=== PATIENT | female | born 1955 | race Caucasian/White ===

== ENCOUNTER → 2017-10-04 13:17 | Outpatient (CLI) | payer OTHER, SELFPAY ==
--- NOTE | 2017-10-04 13:25 | BI_ITS ---
MAMMOGRAPHY - BILATERAL SCREENING REASON FOR EXAM: Female, 62 years old. Routine annual screening examination. PERTINENT HISTORY: Grandmother with breast cancer. TECHNIQUE: Digital bilateral breast laura (3D mammographic acquisition) in the CC and MLO projections. 2-D mediolateral oblique (MLO) and craniocaudad (CC) views of both breasts were obtained. CAD: Full Field Digital Mammography with Computer Added Detection was performed. COMPARISON: Comparison is made with prior examination dated September 11, 2016 and June 11, 2012. FINDINGS: Breast Composition: There are scattered areas of fibroglandular density. There are no dominant masses or suspicious calcifications. No other significant abnormalities are identified. There has been no significant change since the prior study. BI/SCREENING MAMM (CAD), BILAT IMPRESSION: Stable bilateral screening mammogram. Yearly follow-up mammogram recommended. (A) ASSESSMENT CATEGORY: BIRADS Category 1: Negative. A letter regarding these results will be sent to the patient by the facility within 30 days. Approximately 10% of breast cancers are not detected by mammography. A normal mammogram should not delay biopsy of a clinically suspicious abnormality. [id number] Electronically Signed: Germán Lima MD at 12:51 EDT Tel [phone], Service support ,
== END ==
PROVIDERS: Family Provider Family Medicine; PCP Family Medicine; Visit Provider Nurse Practitioner Women's Health
DX: Z12.31 Encounter for screening mammogram for malignant neoplasm of breast (principal)
CPT/HCPCS: 77063; 77067

== ENCOUNTER → 2017-10-08 09:57 | Outpatient (CLI) | payer OTHER, SELFPAY ==
[2017-10-08 12:48] LABS: Anion Gap 7 (5-15); BUN 15 mg/dL (7-18); Calcium,Total 9.1 mg/dL (8.5-10.1); Chloride 104 mmol/L (98-107); Cholesterol 165 mg/dL (200); Creatinine, Serum 0.83 mg/dL (0.55-1.02); EST Glomerular Filtration Rate 74 mL/min (>60); Est Glom Filt Rate - Afr Amer 90 mL/min (>60); Glucose 99 mg/dL (74-106); High Density Lipoprotein 71 mg/dL; Potassium 3.5 mmol/L (3.5-5.1); Sodium Level 143 mmol/L (136-145); Thyroid Stim Hormone (TSH) 3.13 uIU/mL (0.358-3.74); Triglycerides 112 mg/dL; Very Low Density Lipoprotein 22 mg/dL (5-40)
== END ==
PROVIDERS: Family Provider Family Medicine; PCP Family Medicine; Visit Provider Nurse Practitioner Adult Health
DX: Z13.220 Encounter for screening for lipoid disorders (principal); Z13.1 Encounter for screening for diabetes mellitus; Z13.29 Encounter for screening for other suspected endocrine disorder
CPT/HCPCS: 36415; 80048; 80061; 84443

== ENCOUNTER → 2017-11-09 09:58 | Outpatient (CLI) | payer OTHER, SELFPAY ==
--- NOTE | 2017-11-09 10:11 | MRI_ITS ---
STUDY: MRI LUMBAR SPINE WITHOUT CONTRAST REASON FOR EXAM: Female, 62 years old. Back pain with numbness in legs and feet bilaterally. TECHNIQUE: Standardized fat and water weighted pulse sequences were obtained in the sagittal and axial planes. COMPARISON: 05/12/2005. FINDINGS: T10-T11: (Sagittal only). Schmorl's node at the T10 inferior endplate. Normal T11 superior endplate. Moderate disc space height narrowing with minimal loss of disc hydration. Normal disc morphology. Normal central canal and bilateral intervertebral neural foramina. T11-T12: (Sagittal only). Normal endplates. Normal disc height, hydration and morphology. Normal central canal and bilateral intervertebral neural foramina. T12-L1: (Sagittal only). Normal endplates. Normal disc height, hydration and morphology. Normal central canal and bilateral intervertebral neural foramina. Normal lumbar lordosis. There is no substantial scoliosis. Normal conus medullaris that terminates at the lower T12 vertebral body level. L1-2: Minimal focal fatty infiltration in the anterior superior corner of L2 vertebral body. Normal endplates. New mild decreased disc height. Mild loss of disc hydration. Small posterior bulging disc. Normal central canal and bilateral lateral recesses. Mild degenerative facet arthropathy. Normal bilateral intervertebral neural foramina. L2-3: New prominent Schmorl's node in the central L2 inferior endplate with moderate amount of reactive edema. New tiny Schmorl's node in the L3 superior endplate. Moderate disc space height narrowing. Small posterior bulging disc. Moderate central canal stenosis secondary to developmentally short pedicles and dorsal epidural lipomatosis. The AP canal diameter is 6.7 mm. Mild asymmetric degenerative facet arthropathy. Normal bilateral intervertebral neural foramina. L3-4: Normal endplates. Mild disc space height narrowing with moderate loss of disc hydration. Moderate central canal stenosis secondary to developmentally short pedicles and dorsal epidural lipomatosis. The AP canal diameter is 7.6 mm. Normal bilateral lateral recesses. Mild degenerative facet arthropathy. Normal bilateral intervertebral neural foramina. L4-5: New Schmorl's node in the posterior aspect of the L4 inferior endplate with reactive edema. Normal L5 superior endplate. Increased narrowing of the disc space height. New degenerative anterolisthesis of L4 on L5. Severe central canal stenosis, worse since the prior study. The AP canal diameter is 2.5 mm. Moderately pronounced bilateral degenerative facet arthropathy. Moderate stenosis of the bilateral intervertebral neural foramina. L5-S1: Normal endplates. Minimal disc space height narrowing. Normal disc hydration and morphology. Normal central canal and bilateral lateral recesses. Moderate degenerative facet arthropathy. Normal bilateral intervertebral neural foramina. Normal visualized sacral ala. Normal visualized paraspinous soft tissue structures. MRI/Spine Lumbar (Routine) IMPRESSION: 1. Severe central canal stenosis at L4-L5 disc level, worse since 05/12/2005. This is due to new increased disc height narrowing and new degenerative anterolisthesis of L4 on L5. 2. Moderate central canal stenosis at L3-L4 disc level secondary to developmentally short pedicles and dorsal epidural lipomatosis. The AP canal diameter is 7.6 mm. 3. Moderate central canal stenosis at L2-L3 disc level with small posterior bulging disc. The AP canal diameter is 6.7 mm. 4. Moderate amount of reactive edema underneath a new large Schmorl's node in the central aspect of the L2 inferior endplate and increase L2-L3 disc space height narrowing. There is also a new but small Schmorl's node in the L3 superior endplate. 5. No MRI evidence of lumbar extruded disc fragment. Electronically Signed: Stoney Tejeda MD at 11:53 EDT , Service support ,
== END ==
PROVIDERS: Family Provider Family Medicine; PCP Family Medicine; Visit Provider Family Medicine
DX: M54.16 Radiculopathy, lumbar region (principal)
CPT/HCPCS: 72148

== ENCOUNTER → 2018-02-12 13:42 | Outpatient (CLI) | payer OTHER, SELFPAY ==
--- NOTE | 2018-02-12 13:44 | RAD_ITS ---
STUDY: X-RAY - LUMBAR SPINE REASON FOR EXAM: Female, 62 years old. Back pain, stenosis TECHNIQUE: 4 view(s) of the lumbar spine were obtained. COMPARISON: None FINDINGS: Lumbar levoscoliosis, Randhawa angle approximately 9 degrees. Normal lumbar lordosis. Slight retrolisthesis of L3 relative to L4 Mild grade 1 anterior listhesis L4-L5 associated with moderate facet hypertrophy. Minimal disc narrowing and endplate degenerative changes are present at L1-L2, L2-L3, L3-L4, L4-L5. There is evidence of facet hypertrophy at each level between L2 and L5. Extension view, slight reduction in the degree of anterolisthesis of L4-L5. Very slight exaggeration of the retrolisthesis of L3-L4. Flexion view, stable L4-L5 anterior listhesis and no significant change in the degree of L3-L4 retrolisthesis. RAD/L/S Spine Min 4 Views IMPRESSION: Spondylolisthesis and mild disc degenerative features with mild to moderate multilevel facet arthropathy/hypertrophy as described above. Electronically Signed: Evgeny Giron, at 14:23 EDT Tel , Service support ,
== END ==
PROVIDERS: Family Provider Family Medicine; PCP Family Medicine; Referring Provider Orthopaedic Surgery; Visit Provider Orthopaedic Surgery
DX: M54.5 Low back pain (principal)
CPT/HCPCS: 72110

== ENCOUNTER → 2018-06-04 08:51 | Outpatient (CLI) | payer OTHER, SELFPAY ==
--- NOTE | 2018-06-04 08:53 | RAD_ITS ---
STUDY: X-RAY - LUMBAR SPINE REASON FOR EXAM: Female, 63 years old. One month postop TECHNIQUE: 2 view(s) of the lumbar spine were obtained. COMPARISON: February 12, 2018 FINDINGS: There is normal alignment and curvature of the lumbosacral spine with interval interbody fusion at L4-5. The procedure is secured by plates and transpedicular screws through L4 and L5. The hardware is in good position.. RAD/Lumbar Spine 2 or 3 Views IMPRESSION: Interbody fusion at L4-5. Electronically Signed: Rickey Medina MD at 2:37 EST Tel , Service support ,
== END ==
PROVIDERS: Family Provider Family Medicine; PCP Family Medicine; Referring Provider Orthopaedic Surgery; Visit Provider Orthopaedic Surgery
DX: M54.9 Dorsalgia, unspecified (principal)
CPT/HCPCS: 72100

== ENCOUNTER → 2018-07-16 08:57 | Outpatient (CLI) | payer OTHER, SELFPAY ==
--- NOTE | 2018-07-16 08:58 | RAD_ITS ---
STUDY: X-RAY - LUMBAR SPINE REASON FOR EXAM: Female, 63 years old. Postop. TECHNIQUE: 4 view(s) of the lumbar spine were obtained. COMPARISON: June 04, 2018. FINDINGS: There is mild exaggeration of lumbar lordosis. There is no substantial scoliosis. There is a normal alignment of the vertebrae. There is no alteration of alignment with flexion or extension. Again seen is posterior fusion of L4-5. The hardware is intact. Normal disc space heights. There is no evidence of acute fracture or loss of vertebral axial height. The soft tissue structures are unremarkable. RAD/L/S Spine Min 4 Views IMPRESSION: Surgical fusion of L4-5 unchanged from prior exam. There are no new findings. There is no vertebral instability. Electronically Signed: Robert Samson DO at 11:46 EDT Tel [phone], Service support ,
== END ==
PROVIDERS: Family Provider Family Medicine; PCP Family Medicine; Referring Provider Orthopaedic Surgery; Visit Provider Orthopaedic Surgery
DX: Z98.1 Arthrodesis status (principal)
CPT/HCPCS: 72110

== ENCOUNTER 2018-09-17 13:30 | Outpatient (RCR) | payer OTHER, SELFPAY ==
--- NOTE | 2018-09-17 13:51 | HP.PTDCSUM ---
HP - PT D/C Summary It has been my pleasure to treat URBAN OLIVER under orders from Layla Giron MD, for the diagnosis of S/P L4-L5 intrumented fusion on 04-26-18 for a total of 15 visit(s). Discharge Date: 09/17/18 Please see the following information for a summary of their discharge status. - Subjective Subjective: She had some soreness yesterday and she was working outside in the yard. Pt feels that she is good and does not need PT any longer. Pt RTD in September. The only time she has trouble is when she has been outside a lot and working a lot and then she knows taht she needs to rest. Pt is planning on doing pool exercises and has some bands for her core. - Pain Back pain Pain Intensity (Out of 10): 0 - Overall Improvement % Improvement: 90 - Objective Objective/Function: Gait: LE MMT: B hip flex 4+/5, B knee ext 4+/5, B knee flex 4+/5, B hip abd 4/5. Pt is able to walk on heels and toes. Curb step: Pt is able to go up and down the curb step without any issue. Stairs: up and down stairs recip with 1 handrails. - Goals Goal 1:: I HEP Goal Progress: Goal Met Goal 2:: Increase trunk AROM to 100% normal ROM Goal Progress: Goal Met Goal 3:: Be able to go up and down a curb step with SBA without LOB 5/5 times Goal Progress: Goal Met Goal 4:: Be able to to molded goods spot picker and object from the floor without having any pain. Goal Progress: Goal Met Goal 5:: Pt to be able to molded goods spot picker weeds from the ground without any pain and be able to have the LE strength to get back up to the standing position. Goal Progress: Goal Met - Plan Plan: DC PT to HEP. - D/C Information Discharge Comments: DC PT to HEP If there are questions or concerns regarding this patient's physical therapy, please feel free to call me at [phone]. Thank you for the referral of this patient. Sincerely, Kyung Coleman, MPT
== END 2018-09-17 19:00 | disposition home or self-care (01) ==
LOC: PT 13:30
PROVIDERS: Family Provider Family Medicine; PCP Family Medicine; Referring Provider Orthopaedic Surgery; Visit Provider Orthopaedic Surgery
DX: Z98.1 Arthrodesis status (principal)
CPT/HCPCS: 97113; 97161; 97530

== ENCOUNTER → 2018-10-01 08:15 | Outpatient (CLI) | payer OTHER, SELFPAY ==
--- NOTE | 2018-10-01 08:16 | RAD_ITS ---
HISTORY: BACK PAIN TECHNIQUE: Lumbar spine 2 views Number of images including paperwork: 2 COMPARISON: 07/16/2018 FINDINGS: VERTEBRAE: No acute fracture. VERTEBRAL ALIGNMENT: No traumatic subluxation. DISKS AND JOINTS: Spinal fusion is noted at L4-5 with posterior rods, pedicle screws and disc spacer. Mild discogenic degenerative changes otherwise. SOFT TISSUES: Unremarkable paraspinous soft tissues. RAD/Lumbar Spine 2 or 3 Views IMPRESSION: 1. No acute osseous abnormality. 2. Postoperative changes at L4-5. at 2222 Reported and signed by: Marilyn Bloom MD Electronically Signed: Marilyn Bloom MD at 22:22 EDT Tel , Service support ,
== END ==
PROVIDERS: Family Provider Family Medicine; PCP Family Medicine; Referring Provider Orthopaedic Surgery; Visit Provider Orthopaedic Surgery
DX: M54.9 Dorsalgia, unspecified (principal)
CPT/HCPCS: 72100

== ENCOUNTER → 2018-11-04 07:42 | Outpatient (CLI) | payer OTHER, SELFPAY ==
[2018-11-04 10:47] LABS: Anion Gap 7 (5-15); BUN 14 mg/dL (7-18); BUN/Creat Ratio 14.8 RATIO (10-20); Chloride 106 mmol/L (98-107); Creatinine, Serum 0.94 mg/dL (0.55-1.02); EST Glomerular Filtration Rate 64 mL/min (>60); Est Glom Filt Rate - Afr Amer 77 mL/min (>60); Glucose 103 mg/dL (74-106); Potassium 3.7 mmol/L (3.5-5.1); Sodium Level 144 mmol/L (136-145)
[2018-11-04 11:02] LABS: Vitamin D,25 Hydroxy 38.8 ng/mL (29.95-100.01)
== END ==
PROVIDERS: Family Provider Family Medicine; PCP Family Medicine; Referring Provider Family Medicine; Visit Provider Family Medicine
DX: I10 Essential (primary) hypertension (principal); M85.80 Other specified disorders of bone density and structure, unspecified site
CPT/HCPCS: 36415; 80048; 82306

== ENCOUNTER → 2019-01-28 13:15 | Outpatient (CLI) | payer OTHER, SELFPAY ==
--- NOTE | 2019-01-28 13:20 | BI_ITS ---
BILATERAL DIGITAL MAMMOGRAM WITH TOMOSYNTHESIS: Mediolateraloblique and craniocaudal views demonstrate no evidence of dominant parenchymal masses. No cluster of microcalcification or architectural distortion is seen. No evidence of skin thickening. No significant change since 10/04/2017. Breast Density: There are scattered areas of fibroglandular density. CAD was used to assist in final assessment. IMPRESSION: NORMAL MAMMOGRAM BILATERALLY. FINAL ASSESSMENT: BIRAD 1 (NEGATIVE) YEARLY MAMMOGRAM RECOMMENDED Approximately 10% of breast cancers are not detected by mammography. A normal mammogram should not delay biopsy of a clinically suspicious abnormality. Electronically Signed: Mo Palacios, at 19:46 EDT Tel , Service support , BI/SCREEN MAMM (CAD) W/PANFILO RAMIREZ
--- NOTE | 2019-01-28 13:48 | BD_ITS ---
STUDY: DUAL ENERGY X-RAY ABSORPTIOMETRY / DXA REASON FOR EXAM: Female, 63 years old. The patient is postmenopausal. Loss of height. TECHNIQUE: Bone Mineral Density (BMD) measurements of lumbar spine and bilateral hips were obtained. COMPARISON: None. FINDINGS: Lumbar Spine (L1-L4): g/cm2 (1.433) / T-score (1.9) / Z-score (3.3) Findings are suggestive of normal bone density with a low fracture risk. Left Femur Total: g/cm2 (0.790) / T-score (-1.7) / Z-score (-0.7) Left Femoral Neck: g/cm2 (0.699) / T-score (-2.4) / Z-score (-1.1) Right Femur Total: g/cm2 (0.777) / T-score (-1.8) / Z-score (-0.8) Right Femoral Neck: g/cm2 (0.670) / T-score (-2.6) / Z-score (-1.3) BD/Dexa Bone Density Study IMPRESSION: The patient is considered osteoporotic as outlined below according to World [employer] Organization (WHO) criteria with a high fracture risk. Reference Information: The T-score is the number of standard deviations above or below the standard which is normal for young adults at their peak bone mineral density. The World Health Organization (WHO) interprets the T-scores as follows: Above -1 Normal bone density Between -1 and -2.5 Osteopenia Equal to / or below -2.5 Osteoporosis As a practical clinical guideline, osteopenia may be graded as follows: Mild -1 through -1.5 Moderate -1.6 through -2.0 Severe -2.1 through -2.4 The Z-score is the number of standard deviations above or below age-matched controls. A Z-score of less than -1.5 would be considered abnormal. References: 1. NIH Osteoporosis and Related Bone Diseases http://www.osteo.org 2. International Society for Clinical Densitometry http://www.iscd.org 3. National Osteoporosis Foundation http://www.nof.org Electronically Signed: Germán Lima, at 11:01 EDT , Service support ,
== END ==
PROVIDERS: Family Provider Family Medicine; PCP Family Medicine; Referring Provider Nurse Practitioner Women's Health; Visit Provider Nurse Practitioner Women's Health
DX: Z12.31 Encounter for screening mammogram for malignant neoplasm of breast (principal); Z78.0 Asymptomatic menopausal state
CPT/HCPCS: 77063; 77067; 77080

== ENCOUNTER → 2019-05-06 08:08 | Outpatient (CLI) | payer OTHER, SELFPAY ==
[2019-04-13 09:04] VITALS: BMI 31.3
--- NOTE | 2019-05-06 08:09 | RAD_ITS ---
STUDY: X-RAY - LUMBAR SPINE REASON FOR EXAM: Female, 63 years old. 1 YEAR FOLLOW UP BACK SURGERY TECHNIQUE: 2 view(s) of the lumbar spine were obtained. COMPARISON: October 01, 2018 FINDINGS: There is a spinal fusion with bilateral pedicle screws and spinal rods with a disc spacer at L4-L5. There is mild disc space narrowing L5-S1 there is mild disc space narrowing L1-L2. There is mild multilevel spondylosis. Since the prior study October 01, 2018 there is no interval change. RAD/Lumbar Spine 2 or 3 Views IMPRESSION: Stable lumbar spine fusion L4-L5. Electronically Signed: Yasmine Franklin MD at 17:32 EST Tel , Service support ,
== END ==
PROVIDERS: Family Provider Family Medicine; PCP Family Medicine; Referring Provider Orthopaedic Surgery; Visit Provider Orthopaedic Surgery
DX: M54.5 Low back pain (principal)
CPT/HCPCS: 72100

== ENCOUNTER → 2019-06-23 20:01 | Outpatient (CLI) | payer OTHER, SELFPAY ==
[2019-04-13 09:04] VITALS: BMI 31.3
== END ==
PROVIDERS: PCP Family Medicine; Referring Provider Family Medicine; Visit Provider Family Medicine
DX: G47.10 Hypersomnia, unspecified (principal); R06.83 Snoring
CPT/HCPCS: 95810

== ENCOUNTER → 2019-07-14 20:00 | Outpatient (CLI) | payer OTHER, SELFPAY ==
[2019-04-13 09:04] VITALS: BMI 31.3
== END ==
PROVIDERS: PCP Family Medicine; Referring Provider Family Medicine; Visit Provider Family Medicine
DX: G47.33 Obstructive sleep apnea (adult) (pediatric) (principal)
CPT/HCPCS: 95811

== ENCOUNTER 2020-04-05 07:32 | Day surgery (SDC) | payer OTHER, SELFPAY ==
[2020-02-26 11:46] VITALS: BMI 32.1
[2020-04-05] VITALS (7 sets, daily range): BP systolic 94–153; BP diastolic 52–87; PULSE 43–51; RESP 16; TEMP 36.2–36.7; O2SAT 97–100; BMI 31.5
--- NOTE | 2020-04-05 | COLBX_PTH ---
PATIENT: URBAN OLIVER LOC: EN U#:[id number] AGE/SX: 64/F ROOM: RE04/05/[address]: Dr. Monika Ching MD : 1955 BED: DIS: 04/05/2020 SPEC #: [id number] RECD: 04/05/20 14:43 STATUS: JAMES REQ #: [id number] JEFRY: 04/05/20 00:[address]: Monika Ching DEPT: SURGICAL PATHOLOGY RECD BY: Dinesh Russo ENTERED: 04/06/20 07:48 SP TYPE: COLON BX OTHR DR: Dr. Brien Horvath DO Tissues: Cecum, NOS Procedures: Surgery Specimen Level IV HEADER OPERATION: Colonoscopy (MAC) PRE-OP DIAGNOSIS: Colon cancer screening TISSUE SUBMITTED: Cecum polyp biopsy MICROSCOPIC DIAGNOSIS Cecum polyp, biopsy: Fragments of tubular adenoma. SJ:alejandro 04/07/20 MICROSCOPIC DESCRIPTION Slides are reviewed. GROSS DESCRIPTION Received in fixative is one container labeled with the patient's name and designated biopsy of cecum polyp. The specimen consists of two irregular fragments of light bey soft tissue that in aggregate measure 0.8 x 0.3 x 0.1 cm. The specimen is totally submitted in one cassette. / GREY:alejandro 04/06/20 TC:1 CPT: 15758
[2020-04-05] MEDS: Lactated Ringers 1,000 ML 100 ML IV (07:49)
--- NOTE | 2020-04-05 07:54 | H&P.OPEN ---
History of Present Illness Date of Admission: 04/05/20 The patient is a 64 year old F presents for screening for colon cancer. Patient last colonoscopy was in [address] Berg negative per patient. Patient denies any chronic abdominal pain nausea or vomiting. Patient does have occasional reflux which she takes Tums, but only occurs with certain foods. Patient has bowel moods daily denies any blood Past Medical/Surgical History - Planned Operation Planned Operative Procedure/s: Colonoscopy Date of Operative Procedure: 04/05/20 Permit Signed: No S.O.S: No Is This Patient Having a Total Joint: No - Previous Hospitalizations/Surgeries HX Hospitalizations: Yes HX of Surgeries: Back surgery- fusion L4 and L5. Hysterectomy with bladder sling. Lysis of adhesions Any Problems With Anesthesia: Yes - nausea after You/Your Family Experience Fever (Hyperthermia) With Anes: No Cholinesterase deficiency: No - Cardiovascular Hx Chest Pain within Last 2 months: No Hx of Irregular Heartbeat and/or Afib: Yes - occas PVC's, no cardiology Hx Heart Attack: No Hx Congestive Heart Failure: No Hx Rheumatic Fever: No Hx Hypertension: Yes - on meds Hx Internal Defibrillator: No Hx Pacemaker: No Hx Cardiac Catheterization: No Hx Cardiac Surgery/Stents/Etc.: No Hx Stress Test: No HX Edema: No Hx Pain in Legs when Walking/Leg Cramps: No - Respiratory Chronic Cough: No HX of Shortness of Breath: No Hoarseness: No Hx Chronic Obstructive Pulmonary Disease (COPD): No Hx Asthma: No Hx Emphysema: No Hx Sleep Apnea: Yes CPAP: Yes BIPAP: No Hx Oxygen Use at Home: No Hx Respiratory Tract Infection/Cold (presently): No Result (for STOP score): Positive Hx Smoking: No Smoking Status: Never smoker - Gastrointestinal Hx Gastroesophageal Reflux: Yes Controlled With Meds: Yes Hx Gastrointestinal Disorders: No Hx Gastrointestinal Bleed: No Hx Ulcer: No Hx Hiatal Hernia: No Difficulty Chewing/Swallowing: No Recent Onset of Swallowing Problems: No Special diet followed at home: No Hx Unplanned Weight Loss of 20#: No HX Unplanned Weight Gain of 20#: No - Neurological Hx Seizures: No HX Syncope/Blackout Spells/Unconsciousness: No Hx CVA/Stroke: No Hx Transient Ischemic Attacks (TIA): No Hx Multiple Sclerosis: No Hx Parkinson's Disease: No Hx Head/Neck Injury: No Hx Headaches: No Hx Back Injury/Pain: Yes - back surgery Recent Onset of Speech Difficulty: No Restless Legs: No Does patient have nerve stimulator: No Patient instructed to have device shut off: No Rep notified?: No - Blood Disorder Hx Leukemia: No Bleeding Tendencies: No Hx Deep Vein Thrombosis: No Hx High Cholesterol: No Blood Transmitted Disease: No Hx Hepatitis: No Hx Cirrhosis: No Hx Anemia: No Hx Blood Disorders: No - Reproduction : No Is Patient Lactating: No Hx Hysterectomy: Yes Hx Tubal Ligation: No Are You Post Menopause: Yes - Genitourinary Hx Renal Disease: No - Musculoskeletal Hx Arthritis: Yes - hand Hx Rheumatoid Arthritis: No Hx Gout: No Recent Onset of an Orthopedic Problem: No - Endocrine Hx Diabetes: No Thyroid Disease: No Hx Steroid Therapy: No - Psycho/Social Hx Substance Use: No Hx Alcohol Use: Yes - occasional Hx Anxiety: No Hx Depression: Yes - in winter, on meds Mental Illness: No Hx Dementia: No - Miscellaneous Hx Cancer: No Recent Exposure to Contagious Disease: No Active MRSA: No Hx of C-Diff: No Any Loose Teeth: No Allergies Sulfa (Sulfonamide Antibiotics) Allergy (Mild, Verified 04/05/20 07:34) Other ciprofloxacin [From Cipro] Adverse Reaction (Mild, Verified 04/05/20 07:34) Nausea - Discharge Is Pt Admitted From a Detention, or a Shelter: No After D/C, Where Do you Plan to Go: Return Home - From the PAT History Number of Risk Factors: 3 - Physical Exam Vitals/I&O's: Vital Signs Temp Pulse Resp BP Pulse Ox 98.0 F 51 L 16 153/87 H 97 04/05/20 07:50 04/05/20 07:50 04/05/20 07:50 04/05/20 07:50 04/05/20 07:50 Oxygen Delivery Method Room Air Weight: 177 lb 14.609 oz Body Mass Index (BMI) 31.5 General: Alert, Oriented x3, Cooperative, No apparent distress HEENT: Atraumatic Lungs: Normal air movement Cardiovascular: Regular rate, Regular Rhythm Abdomen: Soft, Non Tender, Non-Distended Extremities: No clubbing, No cyanosis, No edema Neurological: Cranial nerves II-XII grossly intact Psych/Mental Status: Normal Affect Current Medications Lactated Ringer's () 1,000 mls @ 100 mls/hr IV .Q10H YOSVANY Last Admin: 04/05/20 07:49 Dose: 100 mls/hr Documented by: Assessment/Plan All Active Problems (Last Reviewed 02/26/20 @ 11:46 by Viji Henry) Cystocele (Acute) 64-year-old female screening for colon cancer Procedure Criteria Procedure Type: Elective COVID Risk Discussion: The surgeon/proceduralist and patient have discussed in detail the risk of exposure to and/or potential harm posed by the COVID-19 virus with having a surgery/procedure at this time versus the risk of delaying the surgery/procedure. It is not possible to know either the risk of delaying the surgery or procedure or chance of getting an infection with perfect accuracy, but a joint decision was made between the patient and the surgeon/proceduralist to proceed at this time with the scheduled surgery/procedure as indicated on the consent form. Surgery Risks - Colonoscopy I discussed with the patient the risks of the procedure: Yes Risks Include but are not Limited To: Risks include but are not limited to: Bleeding, perforation requiring further surgery, inability to complete colonoscopy requiring barium enema.
--- NOTE | 2020-04-05 09:27 | OP.COLON_ITS ---
Patient Name: Shivani Krause Procedure Date: 04/05/2020 8:36 AM Date of : 1955 Age: 64 Procedure: Colonoscopy Indications: Screening for colorectal malignant neoplasm Providers: Monika Ching MD Referring MD: Brien Horvath Medicines: Monitored Anesthesia Care Patient Profile: This is a 64 year old female. Last Colonoscopy: 2009. Complications: No immediate complications. Procedure: Pre-Anesthesia Assessment: - Prior to the procedure, a History and Physical was performed, and patient medications and allergies were reviewed. The patient's tolerance of previous anesthesia was also reviewed. The risks and benefits of the procedure and the sedation options and risks were discussed with the patient. All questions were answered, and informed consent was obtained. Prior Anticoagulants: The patient has taken no previous anticoagulant or antiplatelet agents. ASA Grade Assessment: Per anesthesia. After reviewing the risks and benefits, the patient was deemed in satisfactory condition to undergo the procedure. After I obtained informed consent, the scope was passed under direct vision. Throughout the procedure, the patient's blood pressure, pulse, and oxygen saturations were monitored continuously. The Colonoscope was introduced through the anus and advanced to the cecum, identified by the appendiceal orifice, ileocecal valve and palpation. The colonoscopy was somewhat difficult due to a tortuous colon. Successful completion of the procedure was aided by using manual pressure. Scope In: 8:46:26 AM Scope Withdrawal Time 0 hours 16 minutes 54 seconds Scope Out: 9:18:27 AM Total Procedure Duration Time 0 hours 32 minutes 1 second Findings: The perianal and digital rectal examinations were normal. Two sessile polyps were found in the cecum. The polyps were less than 5 mm in size. These polyps were removed with a cold biopsy forceps. Resection and retrieval were complete. Multiple small-mouthed diverticula were found in the sigmoid colon. The exam was otherwise without abnormality on direct and retroflexion views. Impression: - Two less than 5 mm polyps in the cecum, removed with a cold biopsy forceps. Resected and retrieved. - Diverticulosis in the sigmoid colon. - The examination was otherwise normal on direct and retroflexion views. Recommendation: - Discharge patient to home. - High fiber diet. - Continue present medications. - Await pathology results. - Repeat colonoscopy in 5 years for surveillance based on pathology results. Procedure Code(s): --- Professional --- 08845, PT, Colonoscopy, flexible; with biopsy, single or multiple Diagnosis Code(s): --- Professional --- Z12.11, Encounter for screening for malignant neoplasm of colon D12.0, Benign neoplasm of cecum K57.30, Diverticulosis of large intestine without perforation or abscess without bleeding CPT copyright 2017 [employer]. All rights reserved. The codes documented in this report are preliminary and upon conservation agent review may be revised to meet current compliance requirements. MD Monika Brown MD 04/05/2020 9:27:39 AM This report has been signed electronically. Number of Addenda: 0 Note Initiated On: 04/05/2020 8:36 AM
--- NOTE | 2020-04-05 09:27 | OP.CCLET_ITS ---
04/05/2020 Brien Horvath [address] [place] [address] Re : Colonoscopy procedure for Shivani Krause Dear Dr. Horvath This procedure was performed on Sunday, April 05, 2020. My impressions and recommendations are as follows: Impressions : - Two less than 5 mm polyps in the cecum, removed with a cold biopsy forceps. Resected and retrieved. - Diverticulosis in the sigmoid colon. - The examination was otherwise normal on direct and retroflexion views. Recommendations : - Discharge patient to home. - High fiber diet. - Continue present medications. - Await pathology results. - Repeat colonoscopy in 5 years for surveillance based on pathology results. My findings are described in the full procedure note, which is enclosed. If I can be of further assistance, please feel free to contact me at Doctor phone number(s): , Work: . Sincerely, MD Monika Brown MD 04/05/2020 9:27:39 AM This report has been signed electronically.
== END 2020-04-05 10:11 | disposition home or self-care (01) ==
LOC: EN 07:33 → AC 07:34
PROVIDERS: PCP Family Medicine; Referring Provider Family Medicine; Visit Provider Surgery
PROC: 0DJD8ZZ Inspection of Lower Intestinal Tract, Via Natural or Artificial Opening Endoscopic (ICD-10-PCS; CPT 45378; principal; 2020-04-05 08:40)
DX: Z12.11 Encounter for screening for malignant neoplasm of colon (principal); D12.0 Benign neoplasm of cecum; K57.30 Diverticulosis of large intestine without perforation or abscess without bleeding; K21.9 Gastro-esophageal reflux disease without esophagitis; Z20.828 Contact with and (suspected) exposure to other viral communicable diseases; I10 Essential (primary) hypertension; G47.30 Sleep apnea, unspecified; Z78.0 Asymptomatic menopausal state; Z79.899 Other long term (current) drug therapy
CPT/HCPCS: 45380; 87426; 88305; C9803; J7120; J2405

== ENCOUNTER 2020-05-18 09:05 | Observation (INO) | payer OTHER, SELFPAY ==
[2020-04-05 07:50] VITALS: BMI 31.5
--- NOTE | 2020-05-11 11:07 | EKG12_ITS ---
Test Reason : PRE SURGERY Blood Pressure : / mmHG Vent. Rate : 051 BPM Atrial Rate : 051 BPM P-R Int : 172 ms QRS Dur : 090 ms QT Int : 450 ms P-R-T Axes : 062 049 013 degrees QTc Int : 414 ms Sinus bradycardia Nonspecific ST abnormality Abnormal ECG Confirmed by SAJI OVERTON, KRUPA ([id number]), assignment desk editor JENNI IRIZARRY ([id number]) on 05/12/2020 8:02:59 AM Referred By: Eusebia Anaya Confirmed By:KRUPA LENNON MD
[2020-05-11 12:40] LABS: Hematocrit 40.1 % (37-47); Hemoglobin 13.5 g/dL (12.0-15.0); Mean Corp Hgb Conc 33.7 g/dL (32-36); Mean Corpuscular Hgb 30.5 pg (27.0-32.0); Mean Corpuscular Volume 90.7 fL (81-99); Mean Platelet Vol. 10.3 fl (6.2-12.0); Platelet Count 372 K/mm3 (150-450); RBC Distribution Width SD 42.9 fl (35.1-43.9); Red Blood Count 4.42 M/mm3 (4.2-5.4); White Blood Count 5.6 K/mm3 (4.4-11.0)
[2020-05-11 13:12] LABS: Anion Gap 3 (5-15); BUN 19 mg/dL (7-18); BUN/Creat Ratio 18.8 RATIO (10-20); Calcium,Total 9.4 mg/dL (8.5-10.1); Chloride 105 mmol/L (98-107); Creatinine, Serum 1.01 mg/dL (0.55-1.02); EST Glomerular Filtration Rate 59 mL/min (>60); Est Glom Filt Rate - Afr Amer 71 mL/min (>60); Glucose 136 mg/dL (74-106); Potassium 3.4 mmol/L (3.5-5.1); Sodium Level 140 mmol/L (136-145)
[2020-05-18] VITALS (12 sets, daily range): BP systolic 105–131; BP diastolic 53–72; PULSE 49–65; RESP 12–18; TEMP 36.3–37.1; O2SAT 91–100; BMI 32.6
[2020-05-18] MEDS: Lactated Ringers 1,000 ML 100 ML IV ×2 (06:44→09:40)
[2020-05-18] MEDS: Cefazolin 2 GM in 0.9% Normal Saline 100 ML IV (07:37)
[2020-05-18] MEDS: Lubricating Jelly 60 GM Tube 30 GM TOPICAL (07:44)
[2020-05-18] MEDS: Lidocaine 1% (30 ml sdv) 30 ML Vial (07:48)
[2020-05-18] MEDS: Estrogens,Conj. 1 Tube 1 DOSE (08:50)
--- NOTE | 2020-05-18 09:11 | OP.PCM_ITS ---
Problem List (1) Vaginal vault prolapse after hysterectomy Status: Acute (2) Stress incontinence Status: Acute (3) Cystocele Status: Acute Qualifiers: Comment: estrogen cream. Refer Dr Anaya Report of Operation Date of Procedure: 05/18/20 Pre-Operative Diagnosis: Cystocele, vaginal vault prolapse, stress incontinence Post-Operative Diagnosis: Same Surgery/Procedure Performed:: Anterior repair with dermis, bilateral sacrospinous ligament fixation, mid urethral sling insertion, cystoscopy with bi lateral ureteral catheterization senior accountant: Michelle Type of Anesthesia:: General Specimen's removed: None Estimated Blood Loss (mL): 50cc Description of Procedure: Patient is a 65-year-old female with pelvic organ prolapse who underwent evaluation in the office and decided to proceed with surgical intervention. Informed consent was obtained including a discussion of COVID-19. The patient was taken to the operating room and placed on the operating room table. Anesthesia monitored the head, neck, airway, IV access and vital signs throughout the case. Once anesthesia was appropriately administered the patient was placed into exaggerated dorsal lithotomy in Trendelenburg position. She was prepped and draped in usual sterile fashion. A urethral Holden catheter was inserted and the bladder was drained. The anterior vaginal wall was isolated and injected submucosally with 1% lidocaine with epinephrine. A midline vertical incision approximately 2 cm in length was made. Sharp and blunt dissection was performed on either side until the ischial spines were palpable and the sacrospinous ligaments were identified and freed from surrounding tissues. The bladder was dissected away from the vaginal mucosa all the way to the area of the bladder neck and the apex. At this time the Capio device was used to pass a Monodek suture through the sacrospinous ligament on each side. The suture was then brought through the corner of dermis which was appropriately trimmed. It was then brought through the vaginal mucosa full-thickness at the area of the apex bilaterally. The dermis was sutured using interrupted 2-0 Vicryl to the area of the midline at the apex, the bladder neck area and laterally into the area of the white line. The midline incision was then closed using running interlocking 2-0 Vicryl. The Monodek sutures were then tied into position and the apical defect was obliterated. The mid urethra was identified and injected submucosally with lidocaine with epinephrine. A vertical midline incision was made approximately 1.5 cm in length. Sharp and blunt dissection was performed on either side of the urethra with care being taken to avoid entrance into the urethra and the vaginal mucosa. Using the given trochars, the Altis mid urethral sling was passed into the obturator complexes bilaterally. The sling lay flat against the urethra without tension. The tensioning suture was cut and the midline incision was closed using running interlocking 2-0 Vicryl. The Holden catheter was then removed and a cystourethroscopy was performed through the urethra under direct visualization. There were no abnormalities within the urinary bladder or the urethra identified. Bilateral ureteral orifices were located in the area of the trigone in correct anatomic position. At this time a 5 [place] whistle-tip catheter was used to cannulate the patient's right ureteral orifice. The ureter had some mild J hooking but the catheter passed easily without much maneuvering and was inserted up to 20 cm. There is no blood on withdrawal of the whistle-tip catheter. On the other side the J hooking was more prominent. 8.035 Glidewire and a Pollack catheter were inserted due to the J hooking and access was easily obtained with this method. The Pollack catheter was inserted to 20 cm without difficulty and there was no blood on removal of the catheter. At this time the cystoscope was removed and the Holden catheter was replaced. The bladder was drained and the vagina was packed using estrogen cream and vaginal packing. There were no complications during this procedure. She was then awakened and taken to the recovery room in good condition. Grafts/Implants Used: Dermis and Altis midurethral sling - Complications none - Admit VTE Documentation VTE Present on Admission: Yes VTE Mechan Device Prophylaxis: SCD's VTE Pharm Prophylaxis ordered?: Yes
--- NOTE | 2020-05-18 09:18 | DCINST_ITS ---
Discharge Diet: No Restrictions Discharge Activity: May Not Drive, May Shower, - - No exercise, no strenuous activity, no vacuuming, no lifting over 5 pounds. No sexual activity. Okay to shower, no tub bathing, swimming or hot tubs. May resume sexual activity in: 8 weeks Lifting Restrictions: 5 pounds Call your doctor if your incision/area has: Continuous Slow Oozing, Sudden Increased Bleeding, Increased Pain/ Swelling, Foul Smelling Discharge Call your doctor if you observe: Fever of 101 or Higher, Inability to urinate, Inability to have a bowel movement, Calf discomfort, Uncontrolled pain Allergies/Adverse Reactions: Allergies Sulfa (Sulfonamide Antibiotics) Allergy (Mild, Verified 04/27/20 13:44) Other ciprofloxacin [From Cipro] Adverse Reaction (Mild, Verified 04/27/20 13:44) Nausea Medications to take at Discharge fluoxetine 20 mg capsule 20 mg PO QDAY 09/07/17 hydrochlorothiazide 25 mg tablet 25 mg PO QAM 09/07/17 metoprolol succinate 100 mg tablet,extended release 24 hr 100 mg PO QHS 09/07/17 multivitamin,ia-vdqa-ylouygbi 1 tab PO QDAY 09/07/17 vitamin B complex 1 tab PO QDAY 09/07/17 cholecalciferol (vitamin D3) 50 mcg (2,000 unit) capsule 50 mcg PO DAILY 02/26/20 estradiol See Rx Instructions VAGINAL .COMPLEX #42.5 g 02/26/20 zinc 50 mg tablet 50 mg PO DAILY 02/26/20 Primary Care Physician: Brien Horvath DO [Primary Care Provider] - Test Results: Test results from this visit will be discussed in further detail at your follow- up appointment, if applicable. Please Follow Up With: Eusebia Anaya MD When: call office for appt Proposed Discharge Date: 05/19/20
[2020-05-18] MEDS: Morphine 4 MG/ML Syringe IV (10:56)
[2020-05-18] MEDS: Dextrose 5%-Lactated Ringers 1,000 ML 100 ML IV ×2 (11:11→19:00)
[2020-05-18] MEDS: Docusate Sodium 100 MG Capsule PO ×2 (11:29→20:35)
[2020-05-18] MEDS: Enoxaparin 40 MG/0.4 ML Syringe SC (12:46)
[2020-05-18] MEDS: Cefazolin 1 GM/50 ML BAG IV ×2 (14:16→20:51)
[2020-05-18] MEDS: HYDROcodone Bitartrate/Apap 5/325 Tablet PO ×2 (14:31→18:54)
[2020-05-18] MEDS: hydroCHLOROthiazide 25 MG Tablet PO (20:35)
[2020-05-18] MEDS: FLUoxetine 20 MG Capsule PO (20:35)
[2020-05-18] MEDS: Metoprolol(XL)Succ 100 MG Tablet PO (20:38)
[2020-05-19 02:26] VITALS: BP 104/58; PULSE 74; RESP 16; TEMP 36.4; O2SAT 95
[2020-05-19] MEDS: HYDROcodone Bitartrate/Apap 5/325 Tablet PO (04:35)
[2020-05-19] MEDS: Dextrose 5%-Lactated Ringers 1,000 ML 100 ML IV (05:35)
[2020-05-19] MEDS: Cefazolin 1 GM/50 ML BAG IV (05:36)
[2020-05-19 05:39] VITALS: BP 106/50; PULSE 62; RESP 15; TEMP 36.6; O2SAT 96
[2020-05-19] MEDS: Enoxaparin 40 MG/0.4 ML Syringe SC (08:11)
[2020-05-19] MEDS: Docusate Sodium 100 MG Capsule PO (08:11)
[2020-05-19 08:16] VITALS: BP 117/47; PULSE 57; RESP 16; TEMP 36.8; O2SAT 96
--- NOTE | 2020-05-19 08:35 | PCM.PN.BLA ---
Progress Note Sitting up in bed, just finished breakfast. Pain in tailbone. No nausea or vomiting. Feeling well. Afebrile, good vital signs. Urine output is good. Abdomen soft, urine clear, SCD's in place. Holden and packing removed without an issue. A/P POD#1 pelvic reconstruction. voiding trial and home later today. STROKE Vital Signs/Narrative: Vital Signs Temp Pulse Resp BP Pulse Ox 05/19/20 08:16 98.3 F 57 L 16 117/47 L 96 05/19/20 05:39 98 F 62 15 106/50 L 96
== END 2020-05-19 14:55 | disposition home or self-care (01) ==
LOC: MS3 14:04 → SDC 14:05 → MS3 14:05
PROVIDERS: Anesthesiology; Admitting Provider Urology; PCP Family Medicine; Referring Provider Urology; Visit Provider Urology
PROC: (CPT 57260; principal; 2020-05-18 07:15)
DX: N99.3 Prolapse of vaginal vault after hysterectomy (principal); Z20.828 Contact with and (suspected) exposure to other viral communicable diseases; N39.3 Stress incontinence (female) (male); F32.9 Major depressive disorder, single episode, unspecified; I10 Essential (primary) hypertension; Z79.899 Other long term (current) drug therapy; R00.1 Bradycardia, unspecified; G47.30 Sleep apnea, unspecified
CPT/HCPCS: 57240; 57288; 36415; 80048; 85027; 87426; 93005; 96361; 96365; 96366; 96372; 96375; 99218; C9803; J7120; C1758; C1769; G0378; G0379; J2405

== ENCOUNTER 2020-10-07 12:42 | Emergency (ER) | payer OTHER, SELFPAY ==
[2020-05-18 11:13] VITALS: BMI 32.6
[2020-10-07 12:42] VITALS: BP 162/82; PULSE 44; RESP 12; TEMP 36.8; O2SAT 98; BMI 31.4
--- NOTE | 2020-10-07 12:48 | CT_ITS ---
STUDY: CT BRAIN WITHOUT CONTRAST REASON FOR EXAM: Female, 65 years old. Headache RADIATION DOSAGE (If Supplied By Facility): CTDIvol = ( 44.99 ) mGy, DLP = ( 762.36 ) mGycm TECHNIQUE: Transaxial CT imaging of the brain was performed without administration of intravenous contrast material. Individualized dose optimization techniques were used for this CT. COMPARISON: No relevant priors. FINDINGS: Normal soft tissue structures. Normal calvarium. Normal size ventricles and extra-axial spaces for the patient''s age. Normal white matter tracts of the cerebral hemispheres. Normal basal ganglia and thalami. Normal brainstem. Normal cerebellum. There is no intracranial hemorrhage. There are no findings of an acute ischemic infarction. Atherosclerotic calcification of the cavernous portions of the internal carotid arteries bilaterally. Normal visualized paranasal sinuses. CT/Brain/Head without Contrast IMPRESSION: Normal unenhanced CT scan of the brain. Electronically Signed: Germán Lima MD at 13:43 EDT , Service support ,
--- NOTE | 2020-10-07 12:49 | EKG12_ITS ---
Test Reason : BACK Blood Pressure : / mmHG Vent. Rate : 047 BPM Atrial Rate : 047 BPM P-R Int : 146 ms QRS Dur : 090 ms QT Int : 488 ms P-R-T Axes : 083 021 000 degrees QTc Int : 431 ms Sinus bradycardia Nonspecific ST and T wave abnormality Abnormal ECG Confirmed by BELINDA OVERTON, ROJAS ([id number]), slot editor KASI GASTELUM ([id number]) on 10/11/2020 11:07:23 A M Referred By: OLY Confirmed By:KARENA TREVINO MD
--- NOTE | 2020-10-07 12:52 | EDS_ITS ---
HPI History of Present Illness Chief Complaint: Back Informant: patient and EMS Onset/Context/Timing Onset: Hours (1) Context: Sudden Onset Timing: Continuous Quality: Pain Location: Right upper back, now a little in the chest Current Severity: Moderate Maximum Severity: Moderate Worsened by: Movement and deep breathing a little Relieved by: Remaining still Associated Symptoms Associated Symptoms: Mild shortness of breath due to somewhat pleuritic nature of discomfort Narrative Narrative: Patient states she was at the grocery store and she was checking out when she suddenly had a significant pain in her right upper back that would not let up. She arrives by EMS. She has not had the symptoms before. She denies any repetitive movements with the right upper extremity that she can think of lately, or injury/fall. No recent illness in the last month. She has not had Covid in the past year or so and has declined to be vaccinated at all. She is right-hand dominant. She denies any symptoms or numbness into her upper extremities. No recent leg pain or swelling, no history of DVT or PE, no recent travel, hospitalization, surgery, or injury to her legs. Patient also has developed a headache, and is extremely anxious saying I am afraid I am having a stroke. She has no lateralizing neurologic symptoms. Prior similar symptoms: No Recent Illness/Hospitalization: No [facility] Medical History (Updated 10/07/20 @ 16:[address] Syed Diaz MD) Fatigue Headache History of depression Hypertension SOB (shortness of breath) Home Medications fluoxetine 20 mg capsule 20 mg PO QDAY 09/07/17 [History Last Taken Unknown] hydrochlorothiazide 25 mg tablet 25 mg PO QAM 09/07/17 [History Last Taken Unknown] metoprolol succinate 100 mg tablet,extended release 24 hr 100 mg PO QHS 09/07/17 [History Last Taken 05/17/20 19:00] multivitamin,lh-kbau-fnqbtuxw 1 tab PO QDAY 09/07/17 [History Last Taken Unknown] vitamin B complex 1 tab PO QDAY 09/07/17 [History Last Taken Unknown] cholecalciferol (vitamin D3) 50 mcg (2,000 unit) capsule 50 mcg PO DAILY 02/26/20 [History Last Taken Unknown] estradiol See Rx Instructions VAGINAL .COMPLEX #42.5 g 02/26/20 [Rx Last Taken Unknown] zinc 50 mg tablet 50 mg PO DAILY 02/26/20 [History Last Taken Unknown] docusate sodium 100 mg PO BID #60 cap 05/18/20 [Rx Last Taken Unknown] cyclobenzaprine 10 mg PO TID PRN #14 tablet 10/07/20 [Rx Last Taken Unknown] Allergy/AdvReac Type Severity Reaction Status Date / Time Sulfa (Sulfonamide Allergy Mild Other Verified 10/07/20 12:45 Antibiotics) ciprofloxacin [From Cipro] AdvReac Mild Nausea Verified 10/07/20 12:45 Family History Mother CVA (cerebral vascular accident) Father Hypertension Surgical History History of bladder surgery History of bunionectomy History of lumbar fusion vaginal hysterectomy Social History Smoking Status: Never smoker alcohol intake: current details: social substance use type: does not use caffeine: Yes what type of physical activity do you participate in: walking seatbelt use: always do you feel safe at home: Yes additional social history: [employer]- 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 ROS ROS ED Constitutional Constitutional ED: Denies chills or fever(s) Eyes Eyes: Denies change in vision or diplopia ENT ENT ED: Denies rhinorrhea or sore throat Cardiovascular Cardiovascular: Reports chest pain; Denies leg edema or palpitations Respiratory/Chest Respiratory/Chest: Reports dyspnea; Denies cough Gastrointestinal Gastrointestinal: Denies abdominal pain, diarrhea, nausea or vomiting Genitourinary Genitourinary ED: Denies dysuria or hematuria Musculoskeletal Musculoskeletal: Reports back pain; Denies difficulty walking, extremity pain or neck pain Integumentary Denies abscess or rash Neurologic Neurologic: Reports headache(s); Denies paresthesias or weakness Psychiatric Psychiatric: Reports anxiety; Denies suicidal thoughts EXAM Physical Exam Const Vital Signs: 10/07/20 12:42 10/07/20 13:19 10/07/20 15:22 Temperature 98.2 F Temperature Source Oral Pulse Rate 44 L 44 L Respiratory Rate 12 11 L Blood Pressure 162/82 H 151/71 H Blood Pressure Mean 108 97 Pulse Ox 98 100 Oxygen Delivery Method Room Air Room Air Room Air Positive well nourished and well developed General Appearance ED: well developed and NAD HEENT Reports moist mucous membranes normocephalic and atraumatic Eyes PERRL and EOMs intact bilaterally Neck full ROM and supple Resp normal respiratory effort and clear to auscultation bilaterally Cardio regular rate, regular rhythm and no murmurs GI non-tender and non-distended Auscultation: normoactive bowel sounds Palpation: soft Back/Spine no CVA tenderness Back/Spine Narrative: Tenderness reproducing patient's significant pain in the area of the rhomboid musculature on the right paraspinal thoracic. No bony tenderness or rashes in this area. Pulling the patient's right arm across her left shoulder and stretching this area along with palpation makes her symptoms feel better while I am doing it. General Back: other FROM Extremity normal to inspection and no calf tenderness General Extremety ED: Negative for edema, pulses abnormal or tenderness General Extremity: Negative for edema or pulses abnormal Neuro oriented x3, CN's II-XII intact bilaterally and no sensory deficits noted Sensorium / Orientation: awake and alert Motor Exam: strength 5/5 throughout Psych mental status grossly normal and thought process normal Mood & Affect: anxious and tearful Skin no rashes or lesions noted and no wounds MDM MDM MDM Narrative Medical decision making narrative: Patient examines like this is muscular in etiology. However given her symptoms and the fact that the discomfort is going into the chest on the right side, work-up was performed to rule out cardiac, pulmonary, vascular etiologies in addition to a CT head because she states she does not usually get headaches. Simultaneously she was treated with Toradol and Norflex. On reevaluation, her symptoms are completely resolved, although she feels a little bit of residual soreness when she moves around. She denies any dyspnea. Her D-dimer returned a little abnormal, her texture was normal, so CT angiography of the chest was obtained, and she was given a liter of IV fluids. It was normal as below. Patient feels much better and I believe this is all muscular in etiology obviously the etiology of that is unknown to hence the testing. Patient is reassured given a prescription for cyclobenzaprine to use as needed in addition to jkpj-jqk-ztweols NSAIDs and advised to follow-up with her doctor. She is comfortable with that plan. Lab Data Attestation: I reviewed the patient's lab results. Labs: Laboratory Results - last 24 hr 06/17/21 06/17/21 06/17/21 13:20 13:20 13:20 WBC 5.0 RBC 4.68 Hgb 13.8 Hct 41.3 MCV 88.2 MCH 29.5 MCHC 33.4 RDW Std Deviation 42.4 RDW Coeff of Mykel 13.2 Plt Count 336 MPV 10.1 Immature Gran % (Auto) 0.400 Neut % (Auto) 43.0 L Lymph % (Auto) 41.9 H [place] % (Auto) 10.9 H Eos % (Auto) 3.4 Baso % (Auto) 0.4 Absolute Neuts (auto) 2.2 Absolute Lymphs (auto) 2.11 Nucleated RBC % 0 D-Dimer Quant (PE/DVT) 0.74 H* Sodium 142 Potassium 3.7 Chloride 104 Carbon Dioxide 30.0 Anion Gap 8 BUN 14 Creatinine 1.07 H Estim Creat Clear Calc 43.94 Est GFR (MDRD) Af Amer 66 Est GFR (MDRD) Non-Af 55 L BUN/Creatinine Ratio 13.1 Glucose 102 Calcium 10.3 H Troponin I < 0.015 Radiography Chest X-Ray - ED: 1 View, Read by ED Physician and No Acute Disease Diagnostic Testing: Radiology Impression Brain CT 10/07/20 12:48 IMPRESSION: Normal unenhanced CT scan of the brain. Electronically Signed: Germán Lima MD at 13:43 EDT , Service support , Chest X-Ray 10/07/20 13:20 IMPRESSION: Borderline cardiomegaly. The lungs are clear. Electronically Signed: Germán Lima MD at 13:37 EDT , Service support , Chest CTA 10/07/20 14:04 IMPRESSION: No acute abnormality is seen. Electronically Signed: Germán Lima MD at 14:35 EDT , Service support , EKG Initial EKG: Attestation: I personally reviewed and interpreted this EKG as follows: Interpretation: Sinus Rhythm (96) and No Acute Injury Pattern Comments: normal EKG Discharge Plan Triage Chief Complaint: Back ED Provider: Syde Diaz Dx/Rx/DC Orders Clinical Impression: Musculoskeletal back pain, Cephalgia Instructions: ED Back Sprain/Strain Prescriptions: New cyclobenzaprine 10 mg tablet 10 mg PO TID PRN (Reason: Muscle Spasm) Qty: 14 RF: 0 No Action metoprolol succinate [Toprol XL] 100 mg tablet extended release 24 hr 100 mg PO QHS RF: 0 hydrochlorothiazide 25 mg tablet 25 mg PO QAM RF: 0 fluoxetine [Prozac] 20 mg capsule 20 mg PO QDAY RF: 0 multivitamin,ri-tivp-bquxjfxg tablet tablet 1 tab PO QDAY RF: 0 vitamin B complex tablet 1 tab PO QDAY RF: 0 zinc 50 mg tablet 50 mg PO DAILY RF: 0 cholecalciferol (vitamin D3) 50 mcg (2,000 unit) capsule 50 mcg PO DAILY RF: 0 estradiol [Estrace] 0.01 % (0.1 mg/gram) cream See Rx Instructions VAGINAL .COMPLEX Qty: 42.5 RF: 2 docusate sodium 100 MG capsule 100 mg PO BID Qty: 60 RF: 3 Primary Care Provider: Brien Horvath Referrals: Brien Horvath DO [Primary Care Provider] - 1 Week if not improving Disposition Disposition: Home, self care
[2020-10-07] MEDS: Ketorolac 15 MG/ML Vial IV (13:18)
--- NOTE | 2020-10-07 13:20 | RAD_ITS ---
STUDY: X-RAY CHEST REASON FOR EXAM: Female, 65 years old. Chest pain TECHNIQUE: Single AP portable view of the chest. COMPARISON: None. FINDINGS: EKG electrodes are seen. The lungs are clear and expanded. There is no demonstrated pleural abnormality. There is borderline cardiomegaly. Normal mediastinum and gaston. Normal visualized pulmonary arteries. Normal visualized aortic arch and descending thoracic aorta. Normal visualized thoracic spine. Normal visualized ribs, clavicles, and shoulders. There is no demonstrated abnormality of the visualized soft tissue structures of the upper abdomen. RAD/Chest 1 View (Portable) IMPRESSION: Borderline cardiomegaly. The lungs are clear. Electronically Signed: Germán Lima MD at 13:37 EDT , Service support ,
[2020-10-07 13:34] LABS: Absolute Lymphocyte Count 2.11 X10^3/uL (0.83-4.51); Absolute Neutrophil Count 2.2 X10^3/uL (2.0-7.7); Basophil# 0.02 X10^3/uL; Basophil% 0.4 % (0-1); Eosinophil# 0.17 X10^3/uL; Eosinophils% 3.4 % (0-5); Hematocrit 41.3 % (37-47); Hemoglobin 13.8 g/dL (12.0-15.0); Lymphocyte # 2.11 X10^3/ul (0.83-4.51); Lymphocyte % 41.9 % (19-41); Mean Corp Hgb Conc 33.4 g/dL (32-36); Mean Corpuscular Hgb 29.5 pg (27.0-32.0); Mean Corpuscular Volume 88.2 fL (81-99); Mean Platelet Vol. 10.1 fl (6.2-12.0); Monocyte# 0.55 X10^3/uL; Monocyte% 10.9 % (0-10); NRBC Flagged by Analyzer 0 % (0-5); Neutrophil # 2.16 X10^3/uL (2.7-7.7); Platelet Count 336 K/mm3 (150-450); RBC Distribution Width CV 13.2 % (11.6-14.6); RBC Distribution Width SD 42.4 fl (35.1-43.9); Red Blood Count 4.68 M/mm3 (4.2-5.4)
[2020-10-07 13:47] LABS: D-Dimer Quantitative (DVT/PE) 0.74 FEU/ug/m (0.27-0.49)
[2020-10-07 13:51] LABS: Anion Gap 8 (5-15); BUN 14 mg/dL (7-18); BUN/Creat Ratio 13.1 RATIO (10-20); Calcium,Total 10.3 mg/dL (8.5-10.1); Chloride 104 mmol/L (98-107); Creatinine, Serum 1.07 mg/dL (0.55-1.02); EST Glomerular Filtration Rate 55 mL/min (>60); Est Glom Filt Rate - Afr Amer 66 mL/min (>60); Estimated Creatinine Clearance 43.94 ml/min; Glucose 102 mg/dL (74-106); Potassium 3.7 mmol/L (3.5-5.1); Sodium Level 142 mmol/L (136-145)
[2020-10-07] MEDS: 0.9% Normal Saline 1,000 ML 999 ML IV (13:59)
--- NOTE | 2020-10-07 14:04 | CT_ITS ---
STUDY: CTA CHEST REASON FOR EXAM: Female, 65 years old. Back/chest pain, elevated d-dimer RADIATION DOSAGE (If Supplied By Facility): CTDIvol = ( 11.04 ) mGy, DLP = ( 421.48 ) mGycm TECHNIQUE: The examination was performed with the intravenous administration of IV 100mL Isovue-370. Post-processing of the angiographic images was performed, with multiplanar reformation and 3D reconstruction. Individualized dose optimization techniques were used for this CT. COMPARISON: Comparison is made with prior chest radiograph done earlier today. FINDINGS: Normal enhancement of the main pulmonary artery and right and left pulmonary arteries. Normal enhancement of the bilateral peripheral pulmonary arteries. There is no demonstrated pulmonary embolism. Normal thoracic aorta and visualized great vessels. There is no demonstrated aortic dissection. Normal heart and pericardium. Normal mediastinum. Normal hilar regions. Normal visualized trachea and bronchi. The lungs are well expanded. Normal pulmonary parenchyma. Normal pleura. Normal chest wall structures. There are degenerative changes of thoracic spine. Findings suggestive of hemangioma of the T6 vertebrae. There is a 1.6 cm low density lesion in the left adrenal gland suggestive of an adrenal adenoma. Small hiatal hernia. CT/CTA Chest W/WO Contrast IMPRESSION: No acute abnormality is seen. Electronically Signed: Germán Lima MD at 14:35 EDT , Service support ,
[2020-10-07 15:22] VITALS: BP 151/71; PULSE 44; RESP 11; O2SAT 100
[2020-10-07 16:28] VITALS: BP 121/90; PULSE 50; RESP 16; O2SAT 98
== END 2020-10-07 16:30 | disposition home or self-care (01) ==
PROVIDERS: Emergency Provider Emergency Medicine; PCP Family Medicine
DX: M54.9 Dorsalgia, unspecified (principal); R51.9 Headache, unspecified; R07.9 Chest pain, unspecified; R06.02 Shortness of breath; I10 Essential (primary) hypertension; F32.9 Major depressive disorder, single episode, unspecified; F41.9 Anxiety disorder, unspecified; Z79.899 Other long term (current) drug therapy
CPT/HCPCS: 70450; 71045; 71275; 80048; 84484; 85025; 85379; 93005; 96361; 96374; 99285; J7030; Q9967

== ENCOUNTER → 2020-12-16 | Outpatient (CLI) | payer OTHER, SELFPAY | END | disposition home or self-care (01) | LOC: LABSPEC 16:59 | PROVIDERS: PCP Family Medicine; Visit Provider Family Medicine | DX: J02.9 Acute pharyngitis, unspecified (principal); R51.9 Headache, unspecified | CPT/HCPCS: 87635; U0005; U0003 ==

== ENCOUNTER → 2021-04-14 13:47 | Outpatient (CLI) | payer OTHER, SELFPAY ==
--- NOTE | 2021-04-14 13:49 | BI_ITS ---
MAMMOGRAPHY - BILATERAL SCREENING 3-D TOMOSYNTHESIS REASON FOR EXAM: Female, 65 years old. screening for breast cancer PERTINENT HISTORY: No significant family history. TECHNIQUE: 2-D mammograms and 3-D Tomosynthesis of the breast (s) were performed. CAD was performed. COMPARISON: 01/28/2019 FINDINGS: The breast composition is composed of scattered fibroglandular density. Scattered benign calcifications are seen. 2 cm oval circumscribed equal density mass in the upper outer quadrant of the right breast at mid depth and focal compression views recommended for further evaluation. No dominant mass left breast. No suspicious calcifications.. No architectural distortion is identified. There is no skin thickening or retraction. BI/SCRN MAMM (CAD)W/PANFILO BILAT IMPRESSION: 2 cm oval circumscribed equal density mass in the upper-outer quadrant right breast at mid depth and focal compression views are recommended for further evaluation. ASSESSMENT CATEGORY: BIRADS Category 0: Incomplete. Need additional imaging evaluation as above. A letter regarding these results will be sent to the patient by the facility within 30 days. FOLLOW UP RECOMMENDATION: Additional imaging recommended as above. (E) Approximately 10% of breast cancers are not detected by mammography. A normal mammogram should not delay biopsy of a clinically suspicious abnormality. Electronically Signed: Evgeny Mast MD at 8:26 EST Tel , Service support ,
== END ==
PROVIDERS: PCP Family Medicine; Referring Provider Nurse Practitioner Women's Health; Visit Provider Nurse Practitioner Women's Health
DX: Z12.31 Encounter for screening mammogram for malignant neoplasm of breast (principal)
CPT/HCPCS: 77063; 77067

== ENCOUNTER 2021-05-03 15:11 | Outpatient (CLI) | payer MEDICARE, BC, SELFPAY ==
--- NOTE | 2021-05-03 15:21 | US_ITS ---
STUDY: ULTRASOUND BREAST - RIGHT REASON FOR EXAM: Female, 65 years old. Abnormal screening mammogram. TECHNIQUE: Axial and longitudinal images of the RIGHT breast were performed with a high resolution ultrasound transducer. # OF IMAGES: 12 COMPARISON: Comparison is made with prior mammogram dated 04/14/2021. FINDINGS: RIGHT Breast: The mammographic abnormality corresponds to a 1.9 cm x 1.6 cm x 0.8 cm cyst at the 12 o''clock position of the breast at 3 cm from nipple. US/Breast Limited Unilateral IMPRESSION: The mammographic abnormality corresponds to a 1.9 cm x 1.6 cm x 0.8 cm cyst at the 12 o''clock position of the breast at 3 cm from the nipple. ASSESSMENT CATEGORY: BIRADS Category 2: Benign. A letter regarding these results will be sent to the patient by the facility within 30 days. Electronically Signed: Germán Lima MD at 15:54 EST , Service support ,
== END 2021-05-03 23:59 | disposition short-term general hospital (02) ==
LOC: OPBI 15:17
PROVIDERS: PCP Family Medicine; Visit Provider Nurse Practitioner Women's Health
DX: N60.01 Solitary cyst of right breast (principal)
CPT/HCPCS: 76642

== ENCOUNTER → 2021-08-24 | Outpatient (CLI) | payer MEDICARE, BC, SELFPAY ==
--- NOTE | 2021-08-24 10:53 | RAD_ITS ---
STUDY: X-RAY - LEFT KNEE REASON FOR EXAM: Female, 66 years old. Knee pain. TECHNIQUE: 4 upright view(s) of the knee. COMPARISON: None. FINDINGS: Osteopenia. Normal visualized proximal tibia and fibula. Normal proximal tibiofibular articulation. Mild medial compartmental arthrosis. Normal lateral femorotibial compartment. Mild arthrosis of the patellofemoral compartment. The soft tissue structures are unremarkable. RAD/Knee 4 or More Views IMPRESSION: Osteopenia with medial and patellofemoral compartmental arthrosis. No acute abnormality, chondrocalcinosis or erosive changes. Electronically Signed: Sawyer Gomez MD at 11:18 EDT ,
== END | disposition home or self-care (01) ==
LOC: MTRAD 10:51
PROVIDERS: PCP Family Medicine; Referring Provider Family Medicine; Visit Provider Family Medicine
DX: M25.562 Pain in left knee (principal)
CPT/HCPCS: 73564

== ENCOUNTER 2022-03-13 11:30 | Outpatient (RCR) | payer MEDICARE, BC, SELFPAY ==
--- NOTE | 2022-03-01 12:27 | HP.PTEVAL_ITS ---
Patient's Visit Information URBAN OLIVER is a 66 year old F referred to Physical Therapy by Dr. Layla Giron MD with a diagnosis of LUMBAR RADICULOPATHY. Date of Evaluation: 03/01/22 Physical Therapist: Michael Quinn, PT, Cert MDT, OCS - Visit Plan Frequency: 2x /Week Duration: 4 Weeks Plan: PT INTERVETIONS DLS ,POSTURAL EX'S LE FLEXABILTY, POSTURE TRAINING,AQUATIC THERAPY NEEDED ,MODALTIES - Subjective This 66 y/o female presents to physical therapy with lumbar radiculopathy . Patient had had lumbar fusion L4-5 and disc Apr 2018 . Patient symptoms started to symptoms in feet then started knee pain that got better noticed increase pain in my left leg. Located pain buttock in posterior leg to calf. Patient get paresthesia/tingling in foot. Described sharp pain. Aggravating factors walking ,extended standing ,lifting and bending. Dr did x-rays and prior surgery 2019 looked good. Alleviating rest ,medication. Patient pain affects sleeping. Coughing/sneezing +. Bowel/bladder -. Initially prior to surgery 2019 had pain in legs bilateral legs. No pain management . Patient MD wants to try PT prior to MRI. Patient pain affects QOL and function .Patient goals affects QOL. MEDICATION : gabepetin. SOCAIL: . VOCATION: RETIRED - Pain Bilateral Back Pain Intensity (Out of 10): 6 Pain Intensity Range: 10 Left Lower Extremity Pain Intensity (Out of 10): 8 Pain Intensity Range: 10 - Objective POSTURE: mild forward posture. GAIT: reciprocal pattern mild antalgic gait left side. PALPTION: tender Left LS /SI region. NEURO: c/o paresthesia/tingling ,reflexes L3-4,L4-5,L5-S1 2/3 ,myotomes intact. MMT: quads/hams 4/5 ,hip flexion 4/5 ,ankle GTE 4/5. LUMBAR ROM: flexion mod loss pain left side ,extension mod left side ,side glides min/mod loss. FLEXABLITY: mod tight with + SLR left - Special Tests L/S Slump test left side: Positive L/S Slump test right side: Negative L/S Left Straight Leg Raise: Positive L/S Right Straight Leg Raise: Negative Lumbar Standing: Flexion - Mechanical Response: No effect Lumbar Standing: Flexion - Symptoms During Testing: Increases Lumbar Standing: Flexion - Symptoms After Testing: Worse Comments:: left LS Lumbar Standing: Extension - Mechanical Response: No effect Lumbar Standing: Extension - Symptoms During Testing: Increases Lumbar Standing: Extension - Symptoms After Testing: Worse Comments:: left LS Lumbar Standing: Right Side Glides - Mechanical Response: No effect Lumbar Standing: Right Side [place] - Symptoms During Testing: No effect Lumbar Standing: Right Side [place] - Symptoms After Testing: No effect Lumbar Standing: Left Side [place] - Mechanical Response: No effect Lumbar Standing: Left Side [place] - Symptoms During Testing: No effect Lumbar Standing: Left Side [place] - Symptoms After Testing: No effect - Balance/Special Test Scores Oswestry Low Back Score: 32 - Goals Goal 1:: Patient to be I with HEP for back Goal Time Frame: 4-6 Weeks Goal 2:: Patient to improve posture for ADLS 80% of the time with activity modification Goal Time Frame: 4-6 Weeks Goal 3:: Patient to demonstrate 50% improvement with increase function and less pain Goal Time Frame: 4-6 Weeks Goal 4:: Patient to improve lumbar ROM for function of recovery to do laundry Goal Time Frame: 4-6 Weeks Goal 5:: Patient to improve back osewstry score by 5 points to improve QOL Goal Time Frame: 4-6 Weeks - Rehabilitation Potential Physical Therapy Diagnosis: This patient has lumbar radiculopathy with h/o fusi on lumbar 2019 with current symptoms in left leg and left lumbar increases with motioning testing and positioning with possible disc no myotome weakness thus benefit from skilled PT Rehabilitation Potential: Good - Anticipated Interventions Patient/Client Instruction: Educate patient on: Condition, Plan of Care For the Purpose of:: To decrease pain, To increase ROM, To improve muscle performance and motor function, To improve ability to perform ADL's, To increase tolerance to activity/condition/position, To improve ability of physical actions for home/community/work/leisure, To improve health of tissue, To decrease soft tissue restriction, To increase flexibility/ROM, To prevent re-injury Therapeutic Exercise to Include: Strength training, Endurance training, Postural training, Flexibilty training, Dynamic Lumbar Stabilization For the Purpose of:: To decrease pain, To increase ROM, To improve muscle performance and motor function, To improve ability to perform ADL's, To increase tolerance to activity/condition/position, To improve ability of physical actions for home/community/work/leisure, To improve health of tissue, To decrease soft tissue restriction, To increase flexibility/ROM, To prevent re-injury TENS: Yes IF ES: Yes Cryotherapy (ice pack, ice massage): Yes Thermo therapy (hot pack): Yes Ultrasound (thermal/non thermal): Yes For the Purpose of:: To decrease pain, To increase ROM, To improve health of tissue, To decrease soft tissue restriction Thank you for the opportunity to evaluate your patient. For Medicare and Medicare HMO plans, please review the plan of care and approve it. It will need to be FAXED BACK to us at [phone] for Medicare purposes. For Medicare only, by signing this I certify the plan of care. Please let me know if there are questions or concerns regarding this plan of care. Physician Signature: Date:
--- NOTE | 2022-08-29 10:08 | HP.PTDCSUM ---
It has been my pleasure to treat URBAN OLIVER referred by Dr. Layla Giron MD, with the diagnosis of LUMBAR RADICULOPATHY for a total of 4 visit(s). Discharge Date: Please see the following information for a summary of their discharge status. Subjective: Today doing bad more pain in my leg Bilateral Back Pain Intensity (Out of 10): 8 Left Lower Extremity Pain Intensity (Out of 10): 8 Objective/Function: Patient lucia well with less pain in leg and back ,does lay prone at home which provides relieve Goal 1:: Patient to be I with HEP for back Goal 2:: Patient to improve posture for ADLS 80% of the time with activity modification Goal 3:: Patient to demonstrate 50% improvement with increase function and less pain Goal 4:: Patient to improve lumbar ROM for function of recovery to do laundry Goal 5:: Patient to improve back osewstry score by 5 points to improve QOL Plan: PT INTERVETIONS DLS ,POSTURAL EX'S LE FLEXABILTY, POSTURE TRAINING,AQUATIC THERAPY NEEDED ,MODALTIES If there are questions or concerns regarding this patient's physical therapy, please feel free to call me at [phone]. Thank you for the referral of this patient. Sincerely, Michael Quinn, PT, Cert MDT, OCS Balance/Gait/Functional tests - Balance/Special Test Scores Oswestry Low Back Score: 32
== END 2022-03-13 19:00 | disposition home or self-care (01) ==
LOC: PT 11:30
PROVIDERS: PCP Family Medicine; Referring Provider Orthopaedic Surgery; Visit Provider Orthopaedic Surgery
DX: M54.16 Radiculopathy, lumbar region (principal)
CPT/HCPCS: 97035; 97162

== ENCOUNTER → 2022-10-31 | Outpatient (CLI) | payer MEDICARE, BC, SELFPAY ==
--- NOTE | 2022-10-31 13:14 | BI_ITS ---
MAMMOGRAPHY - BILATERAL SCREENING REASON FOR EXAM: Female, 67 years old. Routine annual screening examination. PERTINENT HISTORY: Aunt with breast cancer. TECHNIQUE: Digital bilateral breast panfilo (3D mammographic acquisition) in the CC and MLO projections. 2-D mediolateral oblique (MLO) and craniocaudad (CC) views of both breasts were obtained. CAD: Full Field Digital Mammography with Computer Added Detection was performed. COMPARISON: Comparison is made with prior study dated April 14, 2021 and January 28, 2019. FINDINGS: Breast Composition: There are scattered areas of fibroglandular density. Stable 1.8 cm well-defined nodule in the upper anterior central portion of the right breast. Prior ultrasound demonstrated this to be a cyst. No other significant abnormalities are identified. BI/SCRN MAMM (CAD)W/PANFILO BILAT IMPRESSION: Stable bilateral screening mammogram. Yearly follow-up mammogram recommended. (A) ASSESSMENT CATEGORY: BIRADS Category 2: Benign. A letter regarding these results will be sent to the patient by the facility within 30 days. Approximately 10% of breast cancers are not detected by mammography. A normal mammogram should not delay biopsy of a clinically suspicious abnormality. [id number] Electronically Signed: Germán Lima MD at 14:19 EDT ,
--- NOTE | 2022-10-31 13:46 | BD_ITS ---
STUDY: DUAL ENERGY X-RAY ABSORPTIOMETRY / DXA REASON FOR EXAM: Female, 67 years old. Bone density screening TECHNIQUE: Bone Mineral Density (BMD) measurements of lumbar spine and bilateral hips were obtained. COMPARISON: Comparison is made with prior study January 28, 2019. FINDINGS: Lumbar Spine (L1-L4): g/cm2 (0.993) / T-score (-0.2) / Z-score (1.6) Findings are suggestive of normal bone density with a low fracture risk. Left Femur Total: g/cm2 (0.751) / T-score (-1.6) / Z-score (-0.3) Left Femoral Neck: g/cm2 (0.595) / T-score (-2.3) / Z-score (-0.7) Right Femur Total: g/cm2 (0.749) / T-score (-1.6) / Z-score (-0.3) Right Femoral Neck: g/cm2 (0.571) / T-score (-2.5) / Z-score (-0.9) The T-Scores on the most recent prior examination were: Lumbar Spine (L1-L4): There has been improvement of bone density since the previous examination. Left Femur Total: which represents an improvement of 2.8%. Right Femur Total: which represents an improvement of 4.3%. BD/Dexa Bone Density Study IMPRESSION: The patient is considered osteoporotic as outlined below according to World [employer] Organization (WHO) criteria with a high fracture risk. There has been improvement of bone density since the previous examination. Reference Information: The T-score is the number of standard deviations above or below the standard which is normal for young adults at their peak bone mineral density. The World Health Organization (WHO) interprets the T-scores as follows: Above -1 Normal bone density Between -1 and -2.5 Osteopenia Equal to / or below -2.5 Osteoporosis As a practical clinical guideline, osteopenia may be graded as follows: Mild -1 through -1.5 Moderate -1.6 through -2.0 Severe -2.1 through -2.4 The Z-score is the number of standard deviations above or below age-matched controls. A Z-score of less than -1.5 would be considered abnormal. References: 1. NIH Osteoporosis and Related Bone Diseases www osteo.org 2. International Society for Clinical Densitometry www iscd.org 3. National Osteoporosis Foundation www nof.org Electronically Signed: Gerámn Lima MD at 9:09 EDT ,
== END | disposition home or self-care (01) ==
LOC: OPBD 13:12
PROVIDERS: PCP Family Medicine; Referring Provider Nurse Practitioner Women's Health; Visit Provider Nurse Practitioner Women's Health
DX: Z12.31 Encounter for screening mammogram for malignant neoplasm of breast (principal); Z78.0 Asymptomatic menopausal state
CPT/HCPCS: 77063; 77067; 77080

== ENCOUNTER 2022-11-13 15:00 | Outpatient (RCR) | payer MEDICARE, BC, SELFPAY ==
--- NOTE | 2022-10-17 14:55 | HP.PTEVAL_ITS ---
Patient's Visit Information URBAN OLIVER is a 67 year old F referred to Physical Therapy by Dr. Layla Giron MD with a diagnosis of L4-S1 instrumental fusion. DOS: 07/05/22. Date of Evaluation: 10/17/22 Physical Therapist: Delano Morales DPT - Visit Plan Frequency: 2-3x /Week Duration: 6 Weeks Plan: Start with B Hip and core strengthening in aquatic setting. Add in HS and hip flexor flexibility. Progress as tolerated. Instruct in HEP as well as progressive walking program at home. - Subjective Pt. is here today for her initial evaluation with diagnosis of L4-S1 instrumental fusion. DOS: 07/05/22. Pt. did have an infection and an Iand D on 08/04/22. Pt. also during her time in the hospital had R and no subsequently L shoulder pain. Pt. did see a PA whom diagnosed her with biceps tendinitis. Pt. is overall doing well. She reports having minimal issues in the mornings, but does have a little bit more symptoms as her day progresses, again minimal. No leg pain noted, no radicular pain noted. Pt. reports no N/T in either LE. Pt. has been increasing her walking with good tolerance. She is sleeping okay. Pt. is hopeful to get back to gardening and doing work out side without increase in symptoms. - Pain Lumbar spine Pain Intensity (Out of 10): 1 Pain Intensity Range: 0, 2 R shoulder Pain Intensity (Out of 10): 1 Pain Intensity Range: 0, 2 - Objective POSTURE: Pt. has decent posture in sitting and standing. Pt. has no lateral shift and normal pelvis positioning. PALPATION: Pt. has slight tenderness along incision. Incision fully healed, possible stitch working its way out near superior aspect of incision. No signs of infection. NEURO: normal sensation and normal DTR of BLEs. Pt. is able to rise on heels and toes without issues. ROM: LUMBAR SPINE: flexion min loss tightness, exten mod loss tightness, SB min loss bilat tightness, rotation min loss bilat tightness. Pt. has slight tightness in B HS and hip flexors. MMT: RLE: ankle 5/5 throughout; knee: ext 4+/5, flexion 4+/5; hip: flexion 4+/5, abd 4+/5. LLE: ankle 5/5 throughout; knee: ext 4+/5 flexion 4/5: hip: flexion 4+/5, abd 4/5. Core strength poor+. GAIT: Pt. has good posture with ambulation, slight decrease in B arm swing, normal step length noted. STAIRS: Pt. completes with 1 HR with some mild increase B LE difficulty with ascending, no issues with descending. - Balance/Special Test Scores Oswestry Low Back Score: 7 - Goals Goal 1:: LTG: Pt. to be I with HEP for core and BLE flexibility and strengthening. Goal Time Frame: 4-6 Weeks Goal 2:: LTG: Pt. to have 5/5 strength throughout core and B hip musculature. 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 Goal Time Frame: 4-6 Weeks Goal 4:: LTG: Pt. to have no pain in lumbar spine with all daily activities. Goal Time Frame: 4-6 Weeks Goal 5:: STG: Pt. to sleep throughout the night without increase in symptoms. Goal Time Frame: 2-4 Weeks - Rehabilitation Potential Physical Therapy Diagnosis: Pt. has signs and symptoms consistent with L4-S1 instrumental fusion. DOS: 07/05/22. Pt. has subsequent BLE and core weakness and some tightness in B HS and hip flexors as well as lumbar spine. Pt. would benefit from PT to work on the above limitations progressing back to all functional activities with out symptoms. Rehabilitation Potential: Excellent - Anticipated Interventions Patient/Client Instruction: Educate patient on: Condition, Plan of Care, Risk Factors, Benefits of Fitness Program For the Purpose of:: To foster healthy habits, To improve decision making, To facilitate caregiver knowledge, To improve self management, To prevent re- injury, To improve ability to perform tasks related to life management Therapeutic Exercise to Include: Strength training, Power training, Coordinati on, Body mechanics, Postural training, Flexibilty training, In an aquatic setting, Dynamic Lumbar Stabilization For the Purpose of:: To decrease pain, To increase ROM, To improve nutrient delivery to tissue, To increase oxygenation perfusion, To improve muscle performance and motor function, To improve ability to perform ADL's, To increase tolerance to activity/condition/position, To improve gait and locomotor functions, To improve health of tissue, To decrease soft tissue restriction, To increase flexibility/ROM Manual Therapy Techniques to Include: Massage, Functional dry needling For the Purpose of:: To decrease pain, To increase ROM, To improve nutrient delivery to tissue, To increase oxygenation perfusion Cryotherapy (ice pack, ice massage): Yes Thermo therapy (hot pack): Yes Thank you for the opportunity to evaluate your patient. For Medicare and Medicare HMO plans, please review the plan of care and approve it. It will need to be FAXED BACK to us at [phone] for Medicare purposes. For Medicare only, by signing this I certify the plan of care. Please let me know if there are questions or concerns regarding this plan of care. Physician Signature: Date:
--- NOTE | 2022-11-15 13:34 | HP.PTDCSUM_ITS ---
Discharge Summary D/C summary: It has been my pleasure to treat URBAN OLIVER referred by Dr. Layla Giron MD, with the diagnosis of L4-S1 instrumental fusion. DOS: 07/05/22 for a total of 9 visit(s). Discharge Date: 11/13/22 Please see the following information for a summary of their discharge status. Subjective Subjective: Pt. reports being about 80% better overall. Minimal pain overall. She does have some issues with getting up from a low chair after being tired. Pain Lumbar spine: Pain Intensity (Out of 10): 0 R shoulder: Pain Intensity (Out of 10): 0 Overall Improvement % Improvement: 80 Objective Objective/Function: Pt. has full ROM of lumbar spine without issues or reports of increased pain. MMT: PT. has full strength of distal BLEs without reports of pain. B hips: 4+/5 without increase in symptoms GAIT: Normal gait pattern no issues. STAIRS: Normal reciprocal pattern noted. Goals Goal 1:: LTG: Pt. to be I with HEP for core and BLE flexibility and strengthening. Goal Progress: Goal Met Goal 2:: LTG: Pt. to have 5/5 strength throughout core and B hip musculature. 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 Goal Progress: Goal Met Goal 4:: LTG: Pt. to have no pain in lumbar spine with all daily activities. Goal Progress: Goal Met Goal 5:: STG: Pt. to sleep throughout the night without increase in symptoms. Goal Progress: Goal Met Plan Plan: Pt. will be Dc from PT this point in time. D/C Information Discharge Comments: Pt. was treated in aquatic setting for her low back surgery. Pt. is doing much better. Pt. is I with all over her exercises and is moving much better. Pt. will be DC from PT at this point in time. d/c sentence: If there are questions or concerns regarding this patient's physical therapy, please feel free to call me at [phone]. Thank you for the referral of this patient. Sincerely, Delano Ely Sipos, DPT Balance/Gait/Functional tests Balance/Special Test Scores Oswestry Low Back Score: 2
== END 2022-11-13 19:00 | disposition home or self-care (01) ==
LOC: PT 15:00
PROVIDERS: PCP Family Medicine; Referring Provider Orthopaedic Surgery; Visit Provider Orthopaedic Surgery
DX: Z98.890 Other specified postprocedural states (principal)
CPT/HCPCS: 97110; 97113; 97161; 97164

== ENCOUNTER → 2023-01-01 | Outpatient (CLI) | payer MEDICARE, BC, SELFPAY ==
--- NOTE | 2023-01-01 14:40 | RAD_ITS ---
STUDY: X-RAY - RIGHT SHOULDER REASON FOR EXAM: Female, 67 years old. Right shoulder pain. TECHNIQUE: 4 view(s) of the shoulder. COMPARISON: None. FINDINGS: Osteopenia. Moderate arthrosis of the glenohumeral joint with osteophyte formation. Mild arthrosis of the AC joint. Small subacromial spur. Normal humeral head and visualized proximal humerus. Normal soft tissues. Normal visualized pulmonary apex. RAD/Shoulder min 2 Views IMPRESSION: Osteopenia with moderate arthrosis of the glenohumeral joint, mild arthrosis of the AC joint and small subacromial spur. No acute abnormality or erosive changes. Electronically Signed: Sawyer Gomez MD at 15:25 EDT ,
--- NOTE | 2023-01-01 14:40 | RAD_ITS ---
STUDY: X-RAY - LEFT SHOULDER REASON FOR EXAM: Female, 67 years old. Bilateral shoulder pain. TECHNIQUE: Frontal view(s) of the shoulder. COMPARISON: None. FINDINGS: Osteopenia. Mild arthrosis of the glenohumeral joint. Mild arthrosis of the AC joint. Small subacromial spur. Normal humeral head and visualized proximal humerus. 2 intra-articular osteochondral bodies projected into the intertubercular region of the proximal humerus measuring approximately 17 mm in diameter. Normal visualized pulmonary apex. RAD/Shoulder min 2 Views IMPRESSION: Osteopenia, mild arthrosis of the glenohumeral and acromioclavicular joints, small subacromial spur and 2 intra-articular osteochondral bodies as described. Electronically Signed: Sawyer Gomez MD at 15:27 EDT ,
[2023-01-01 18:29] LABS: Vitamin D,25 Hydroxy 59.9 ng/mL
== END | disposition home or self-care (01) ==
LOC: MTLAB 14:27
PROVIDERS: PCP Family Medicine; Referring Provider Family Medicine; Visit Provider Family Medicine
DX: M81.0 Age-related osteoporosis without current pathological fracture (principal); M25.511 Pain in right shoulder; M25.512 Pain in left shoulder
CPT/HCPCS: 36415; 73030; 82306

== ENCOUNTER → 2024-03-12 | Outpatient (CLI) | payer MEDICARE, BC, SELFPAY ==
--- NOTE | 2024-03-12 11:36 | BI_ITS ---
MAMMOGRAPHY - BILATERAL SCREENING REASON FOR EXAM: Female, 68 years old. Routine annual screening examination. PERTINENT HISTORY: Grandmother with breast cancer. TECHNIQUE: Digital bilateral breast panfilo (3D mammographic acquisition) in the CC and MLO projections. 2-D mediolateral oblique (MLO) and craniocaudad (CC) views of both breasts were obtained. CAD: Full Field Digital Mammography with Computer Added Detection was performed. COMPARISON: Comparison is made with prior examination dated October 31, 2022 and April 14, 2020 FINDINGS: Breast Composition: There are scattered areas of fibroglandular density. Stable 1.7 cm x 1.2 cm well-defined nodule in the superior retroareolar region of the right breast. Prior sonogram demonstrated this to be a cyst. No other significant abnormalities are identified. There has been no significant change since the prior study. BI/SCRN MAMM (CAD)W/PANFILO BILAT IMPRESSION: Stable bilateral screening mammogram. Yearly follow-up mammogram recommended. (A) ASSESSMENT CATEGORY: BIRADS Category 2: Benign. A letter regarding these results will be sent to the patient by the facility within 30 days. Approximately 10% of breast cancers are not detected by mammography. A normal mammogram should not delay biopsy of a clinically suspicious abnormality. [id number] Electronically Signed: Germán Lima MD at 13:14 EST ,
== END | disposition home or self-care (01) ==
LOC: OPBI 11:23
PROVIDERS: PCP Family Medicine; Referring Provider Nurse Practitioner Women's Health; Visit Provider Nurse Practitioner Women's Health
DX: Z12.31 Encounter for screening mammogram for malignant neoplasm of breast (principal)
CPT/HCPCS: 77063; 77067

== ENCOUNTER → 2024-03-12 | Outpatient (CLI) | payer MEDICARE, BC, SELFPAY ==
[2024-03-12 12:23] LABS: Absolute Lymphocyte Count 1.56 X10^3/uL (0.83-4.51); Absolute Neutrophil Count 3.5 X10^3/uL (2.0-7.7); Basophil# 0.04 X10^3/uL; Basophil% 0.7 % (0-1); Eosinophils% 1.7 % (0-5); Hematocrit 37.1 % (37-47); Hemoglobin 11.9 g/dL (12.0-15.0); Lymphocyte # 1.56 X10^3/ul (0.83-4.51); Mean Corp Hgb Conc 32.1 g/dL (32-36); Mean Corpuscular Hgb 25.7 pg (27.0-32.0); Mean Corpuscular Volume 80.1 fL (81-99); Mean Platelet Vol. 10.5 fl (6.2-12.0); Monocyte# 0.55 X10^3/uL; Monocyte% 9.5 % (0-10); NRBC Flagged by Analyzer 0 % (0-5); Neutrophil # 3.51 X10^3/uL (2.7-7.7); Neutrophil % 60.9 % (47-70); Platelet Count 427 K/mm3 (150-450); RBC Distribution Width CV 15.9 % (11.6-14.6); RBC Distribution Width SD 46.4 fl (35.1-43.9); Red Blood Count 4.63 M/mm3 (4.2-5.4); White Blood Count 5.8 K/mm3 (4.4-11.0)
[2024-03-12 12:46] LABS: AST(SGOT) 24 U/L (15-37); Alanine Aminotransfer ALT/SGPT 31 U/L (13-56); Albumin, Serum 3.7 g/dL (3.2-5.0); Alkaline Phosphatase 125 U/L (45-117); Anion Gap 7 (5-15); BUN 19 mg/dL (7-18); BUN/Creat Ratio 19.8 RATIO (10-20); Calcium,Total 10.6 mg/dL (8.5-10.1); Chloride 105 mmol/L (98-107); Creatinine, Serum 0.96 mg/dL (0.55-1.02); EST Glomerular Filtration Rate 62 mL/min (>60); Est Glom Filt Rate - Afr Amer 74 mL/min (>60); Globulin 3.7 g/dL (2.2-4.2); Glucose 116 mg/dL (74-106); Potassium 3.5 mmol/L (3.5-5.1); Protein, Total 7.4 g/dL (6.4-8.2); Sodium Level 138 mmol/L (136-145)
== END | disposition home or self-care (01) ==
LOC: BFHLAB 10:42
PROVIDERS: PCP Family Medicine; Visit Provider Family Medicine
DX: R10.9 Unspecified abdominal pain (principal)
CPT/HCPCS: 36415; 80053; 85025

== ENCOUNTER → 2024-03-14 | Outpatient (CLI) | payer MEDICARE, BC, SELFPAY ==
[2024-03-14 12:42] LABS: Ionized Calcium Order ORDER TUBE
[2024-03-14 16:12] LABS: Ionized Calcium 1.34 mmol/L (1.09-1.30)
[2024-03-14 16:22] LABS: PTHIN 81.1 pg/mL (18.4-80.1)
[2024-03-18 14:10] LABS: Vitamin D 1,25-Dihydroxy 60.4 pg/mL (24.8-81.5)
== END | disposition home or self-care (01) ==
PROVIDERS: PCP Family Medicine; Visit Provider Family Medicine
DX: E83.52 Hypercalcemia (principal)
CPT/HCPCS: 36415; 82306; 82330; 82652; 83970

== ENCOUNTER → 2025-02-20 | Outpatient (CLI) | payer MEDICARE, BC, SELFPAY ==
[2025-02-20 12:26] LABS: Hematocrit 36.1 % (37-47); Hemoglobin 11.4 g/dL (12.0-15.0); Immature Granulocytes Count 0.010 X10^3/uL (0.0-0.0); Mean Corp Hgb Conc 31.6 g/dL (32-36); Mean Corpuscular Volume 78.1 fL (81-99); Mean Platelet Vol. 10.5 fl (6.2-12.0); NRBC Flagged by Analyzer 0 % (0-5); Platelet Count 397 K/mm3 (150-450); RBC Distribution Width CV 15.7 % (11.6-14.6); RBC Distribution Width SD 44.0 fl (35.1-43.9); Red Blood Count 4.62 M/mm3 (4.2-5.4); White Blood Count 5.4 K/mm3 (4.4-11.0)
[2025-02-20 12:59] LABS: PTHIN 95 pg/mL (11-61)
[2025-02-20 13:18] LABS: AST(SGOT) 27 U/L (<=31); Alanine Aminotransfer ALT/SGPT 22 U/L (<=34); Albumin, Serum 3.9 g/dL (3.4-4.8); Alkaline Phosphatase 147 U/L (35-104); Anion Gap 9 (5-15); BUN 17 mg/dL (4-19); BUN/Creat Ratio 19.3 RATIO (10-20); Calcium,Total 10.8 mg/dL (7.6-11.0); Carbon Dioxide 27.6 mmol/L (21.0-32.0); Chloride 103 mmol/L (98-108); Cholesterol 157 mg/dL (<=200); Ferritin 14 ng/mL (22-378); Globulin 2.9 g/dL (2.2-4.2); Glucose 109 mg/dL (70-99); Low Density Lipoprotein Calc. 70 mg/dL; Potassium 4.1 mmol/L (3.3-5.1); Triglycerides 82 mg/dL; Very Low Density Lipoprotein 16 mg/dL (5-40); Vitamin D,25 Hydroxy 41.4 ng/mL (30-100); cholesterol:hdl ratio screen 2.20
[2025-02-20 17:54] LABS: Iron 51 ug/dL (50-170); Iron Binding Capacity,Unsat 417 ug/dL (228-428)
[2025-02-20 18:20] LABS: Iron Binding Capacity,Total 468 ug/dL (250-450)
== END | disposition home or self-care (01) ==
LOC: MTLAB 09:04
PROVIDERS: PCP Family Medicine; Referring Provider Family Medicine; Visit Provider Family Medicine
DX: I10 Essential (primary) hypertension (principal); D64.9 Anemia, unspecified; E21.0 Primary hyperparathyroidism; M81.0 Age-related osteoporosis without current pathological fracture
CPT/HCPCS: 36415; 80053; 80061; 82306; 82728; 83540; 83550; 83970; 85025

== ENCOUNTER → 2025-03-17 | Outpatient (CLI) | payer MEDICARE, BC, SELFPAY ==
--- NOTE | 2025-03-17 13:10 | BD_ITS ---
PROCEDURE: DEXA BONE DENSITY STUDY 03/17/2025 REASON FOR EXAM: F, age 69 y/o . Postmenopausal. TECHNIQUE: Procedure Code: BDDBD Modality: DX Procedure: DEXA BONE DENSITY STUDY COMPARISON: DEXA examination dated 10/31/2022 FINDINGS: BMD and T-SCORES Lumbar spine: 1.038 g/cm2, T-score 0.2 Levels: L1 through L3 Change from prior: There has been a significant increase in the bone mineral density of the lumbar spine by 4.6% since the prior study dated 10/31/2022. Left femoral neck: 0.644 g/cm2, T-score -1.8 Left total hip: 0.724 g/cm2, T-score -1.8 Change from prior: There has been a decrease in the bone mineral density of the left hip by 3.5% since the prior study dated 10/31/2022. Right femoral neck: 0.600 g/cm2, T-score -2.2 Right total hip: 0.709 g/cm2, T-score -1.9 Change from prior: There has been a significant decrease in the bone mineral density of the right hip by 5.3% since the prior study dated 10/31/2022. The World Health Organization has defined the following categories based on bone density: Normal bone density: T-score equal to or greater than -1.0 Osteopenia: T-score between -1.0 and -2.5 Osteoporosis: T-score equal to or less than -2.5 FRAX (or Comparable) Fracture Risk Assessment: 10 Year Probability of Fracture: Major Osteoporotic Fracture: 19% Hip Fracture: 3.5% (Note: FRAX is not to be reported in setting of normal range bone density, osteoporosis on DEXA, known history of osteoporosis, prior osteoporotic hip or vertebral fracture, or for any patient undergoing pharmacological treatment for bone loss.) The National Osteoporosis Foundation (NOF) recommends pharmacological treatment for patients with a FRAX 10-year risk of 3% or higher for a hip fracture, or 20% or higher for a major osteoporotic fracture, to prevent osteoporosis and reduce fracture risk. The patient does meet the pharmacological treatment recommendations for prevention of osteoporosis. BD/Dexa Bone Density Study IMPRESSION: OSTEOPENIA. Recommend follow-up as clinically warranted. Electronically Signed By: Yaquelin Dolan 03/20/2025 12:35 Reading Location: [facility] [place]
--- NOTE | 2025-03-17 13:30 | BI_ITS ---
EXAM: SCRN MAMM (CAD)W/PANFILO BILAT DATE: 03/17/2025 CLINICAL HISTORY: F, Age 69 y/o , SCREEN FOR BREAST CANCER TECHNIQUE: Procedure Code: [id number] Modality: MG Procedure: SCRN MAMM (CAD)W/PANFILO BILAT COMPARISON: Prior exam(s) dated 2023 and 10/31/2022. FINDINGS: TISSUE DENSITY: There are scattered areas of fibroglandular density. Bilateral Breast Mammographic Findings: No significant masses, calcifications or other abnormalities are identified. A 2 cm well-circumscribed isodense mass in the superior, middle 3rd aspect of the right breast is noted and appears stable. A prior ultrasound examination showed this mass to represent a cyst. Stable nodular masslike densities are seen in the superior aspect of the left breast and appears stable. BI/SCRN MAMM (CAD)W/PANFILO BILAT IMPRESSION: Benign screening mammogram OVERALL FINAL ASSESSMENT BI-RADS 2: BENIGN RECOMMENDATION: Routine annual follow-up in 1 Year Additional Recommendation none A letter with findings and recommendations will be mailed to the patient. Reading Location: [id number]
== END | disposition home or self-care (01) ==
PROVIDERS: PCP Family Medicine; Referring Provider Family Medicine; Visit Provider Family Medicine
DX: Z12.31 Encounter for screening mammogram for malignant neoplasm of breast (principal); M81.0 Age-related osteoporosis without current pathological fracture; Z78.0 Asymptomatic menopausal state
CPT/HCPCS: 77063; 77067; 77080